=== PATIENT | male | born 1990 | race Caucasian/White ===

== ENCOUNTER 2018-07-14 21:37 | Emergency (ER) | payer SELFPAY ==
[2018-07-14 22:36] VITALS: BP 126/73
[2018-07-14] MEDS ORDERED: LIDOCAINE 2% VISCOUS SOLN 20 ML UDCUP PO ONE (23:26)
[2018-07-14] MEDS ORDERED: METOCLOPRAMIDE HCL ORAL SOLN 10 MG/10 ML UDCUP PO ONE (23:26)
[2018-07-14] MEDS ORDERED: MAG HYDROX/AL HYDROX/SIMETH SUSP 30 ML UDCUP PO ONE (23:26)
--- NOTE | 2018-07-15 00:41 | ER Document Report ---
HPI - HPI Pain Level: 3 Notes: Patient is a 28-year-old male with history of acid reflux disease. Patient reports having worsening symptoms today. Patient took double dose of his Zantac with some relief but patient still complains of epigastric pain. Patient denies any nausea, vomiting or fever. Patient denies any history of cardiac disease. - CARDIOVASCULAR Cardiovascular: REPORTS: Chest pain - GASTROINTESTINAL Gastrointestinal: REPORTS: Abdominal Pain Past Medical History - General Information source: Patient - Social History Smoking Status: Current Every Day Smoker Frequency of alcohol use: Occasional Drug Abuse: None Family History: Reviewed & Not Pertinent Patient has suicidal ideation: No Patient has homicidal ideation: No Renal/ Medical History: Denies: Hx Peritoneal Dialysis GI Medical History: Reports: Hx Gastroesophageal Reflux Disease Psychiatric Medical History: Reports: Hx Depression Vertical Provider Document - CONSTITUTIONAL Notes: PHYSICAL EXAMINATION: GENERAL: Well-appearing, well-nourished and in no acute distress. HEAD: Atraumatic, normocephalic. EYES: Pupils equal round and reactive to light, extraocular movements intact, sclera anicteric, conjunctiva are normal. ENT: Nares patent, oropharynx clear without exudates. Moist mucous membranes. NECK: Normal range of motion, supple without lymphadenopathy LUNGS: Breath sounds clear to auscultation bilaterally and equal. No wheezes rales or rhonchi. HEART: Regular rate and rhythm without murmurs ABDOMEN: Soft, nontender, nondistended abdomen. No guarding, no rebound. No masses appreciated. Musculoskeletal: Normal range of motion, no pitting or edema. No cyanosis. NEUROLOGICAL: Cranial nerves grossly intact. Normal speech, normal gait. Normal sensory, motor exams PSYCH: Normal mood, normal affect. SKIN: Warm, Dry, normal turgor, no rashes or lesions noted. - INFECTION CONTROL TRAVEL OUTSIDE OF THE [place] IN LAST 30 DAYS: No Course - Re-evaluation Re-evalutation: EKG reveals a sinus rhythm, no ST segment elevations or depressions, normal axis. Patient was given a GI cocktail and reports that his symptoms have completely resolved. Patient will be discharged home in stable condition. - Vital Signs Vital signs: Temp Pulse Resp BP Pulse Ox 97.8 F 68 126/73 H 98 07/14/18 22:33 07/14/18 22:33 07/14/18 22:33 09/20/18 22:33 Discharge - Discharge Clinical Impression: GERD (gastroesophageal reflux disease) Qualifiers: Esophagitis presence: without esophagitis Qualified Code(s): K21.9 - Gastro- esophageal reflux disease without esophagitis Condition: Stable Disposition: HOME, SELF-CARE Additional Instructions: Reflux Disease (GERD) Gastro-Esophageal Reflux Disease (GERD) is caused by stomach acid refluxing back up into the esophagus. The valve at the end of the esophagus may be weak. This is common in persons with a hiatal hernia. GERD symptoms can include indigestion, chest pain, heartburn, or food "sticking." Certain foods, alcohol, and aspirin can make GERD worse. Treatment depends on the severity. Usually, antacids or acid-suppressing medicines are used. When the esophagus is acutely inflamed, the physician will often prescribe membrane-protective drugs such as Carafate. Some patients benefit from medication such as Reglan that tightens the valve at the top of the stomach. Avoid those foods that bring on your symptoms. For many people, these foods are coffee, chocolate, onions, garlic, and carbonated drinks. Don't use alcohol, aspirin, caffeine, or tobacco. Don't eat late at night -- within 4 hours of bedtime. Don't over-eat. If necessary, elevate the head of your bed about 4 inches so that stomach acid will not roll up into your esophagus. Call the doctor if you develop severe chest pain, inability to swallow fluids, fever, or worsening symptoms. Your EKG was normal today and your pain was resolved with the GI cocktail. You may want to try taking omeprazole or Prilosec instead of Zantac. Please follow- up with your primary care provider for a follow-up if your symptoms persist. If you develop worsening chest pain accompanied by shortness of breath, radiation of the pain, nausea, vomiting or any other symptom that is concerning to please return to the emergency department immediately.
--- NOTE | 2018-07-15 10:24 | EKG REPORT ---
SEVERITY:- NORMAL ECG - SINUS RHYTHM : Confirmed by: Diana Schwarz MD 15-Jul-2018 10:23:45
== END 2018-07-15 01:15 | disposition home or self-care (01) ==
LOC: ER 21:37
DX: K21.9 Gastro-esophageal reflux disease without esophagitis (principal); R07.9 Chest pain, unspecified; F17.200 Nicotine dependence, unspecified, uncomplicated
CPT/HCPCS: 93005; 99284; 93010; J3490

== ENCOUNTER 2018-12-05 21:29 | Emergency (ER) | payer BC ==
--- NOTE | 2018-12-05 23:20 | EKG REPORT ---
SEVERITY:- NORMAL ECG - SINUS RHYTHM : Confirmed by: Diana Schwarz MD 05-Dec-2018 23:20:04
[2018-12-05 23:39] LABS: ABSOLUTE BASOPHILS # (AUTO) 0.1 10^3/uL (0.0-0.2); ABSOLUTE EOSINOPHILS # (AUTO) 0.3 10^3/uL (0.0-0.6); ABSOLUTE LYMPHOCYTES (AUTO) 2.4 10^3/uL (0.5-4.7); ABSOLUTE MONOCYTES (AUTO) 0.7 10^3/uL (0.1-1.4); ABSOLUTE NEUT (AUTO) 6.7 10^3/uL (1.7-8.2); BASOPHILS % (AUTO) 0.8 % (0-2); EOSINOPHILS % (AUTO) 3.1 % (0-6); HEMATOCRIT 43.8 % (37.9-51.0); HEMOGLOBIN 15.2 g/dL (13.5-17.0); LYMPHOCYTES % (AUTO) 23.1 % (13-45); MEAN CORPUSCULAR HEMOGLOBIN 30.1 pg (27.0-33.4); MEAN CORPUSCULAR HGB CONC 34.7 g/dL (32.0-36.0); MEAN CORPUSCULAR VOLUME 87 fl (80-97); MONOCYTES % (AUTO) 7.3 % (3-13); PLATELET COUNT 161 10^3/uL (150-450); RED BLOOD COUNT 5.05 10^6/uL (4.35-5.55); RED CELL DISTRIBUTION WIDTH 13.4 % (11.5-14.0); SEGMENTED NEUTROPHILS % (AUTO) 65.7 % (42-78); TOTAL CELLS COUNTED % (AUTO) 100 %; WHITE BLOOD COUNT 10.2 10^3/uL (4.0-10.5)
[2018-12-05 23:42] LABS: APPEARANCE,URINE CLEAR; BILIRUBIN,URINE NEGATIVE (NEGATIVE); COLOR,URINE YELLOW; GLUCOSE, URINE NEGATIVE (NEGATIVE); KETONES,URINE NEGATIVE (NEGATIVE); LEUKOCYTE ESTERASE,URINE NEGATIVE (NEGATIVE); NITRITE,URINE NEGATIVE (NEGATIVE); PROTEIN,URINE NEGATIVE (NEGATIVE)
--- NOTE | 2018-12-05 23:51 | ER Document Report ---
ED General - General Chief Complaint: Abdominal Pain Stated Complaint: CHEST PAIN Time Seen by Provider: 12/05/18 23:50 Notes: Patient is a 28-year-old male who presents with complaint of burning type sensation going into his chest. Says started today. No start after eating. He does have history of acid reflux and says he is felt similar pain but this is much more intense than what is had in the past. He does take omeprazole every day. No fevers. No vomiting. No diarrhea. No social abdominal pain. He says he feels a burning type pain in his esophagus when he swallows. Only other chronic medical problems he has is anxiety for which she takes medication for. He does not feel anxious at this time. TRAVEL OUTSIDE OF THE [place] IN LAST 30 DAYS: No - Related Data Allergies/Adverse Reactions: amoxicillin [From Augmentin] Allergy (Verified 12/05/18 21:38) clavulanic acid [From Augmentin] Allergy (Verified 12/05/18 21:38) Past Medical History - Social History Smoking Status: Current Every Day Smoker Chew tobacco use (# tins/day): No Frequency of alcohol use: None Drug Abuse: None Family History: Reviewed & Not Pertinent Patient has suicidal ideation: No Patient has homicidal ideation: No Renal/ Medical History: Denies: Hx Peritoneal Dialysis GI Medical History: Reports: Hx Gastroesophageal Reflux Disease Psychiatric Medical History: Reports: Hx Depression Review of Systems - Review of Systems Notes: My Normal Review Basic REVIEW OF SYSTEMS: CONSTITUTIONAL : Denies fever, chills, or sweats. Denies recent illness. EENT: Denies eye, ear, throat, or mouth pain or symptoms. Denies nasal or sinus congestion. CARDIOVASCULAR: Any pain going into chest. RESPIRATORY: Denies cough, cold, or chest congestion. Denies shortness of breath, difficulty breathing, or wheezing. GASTROINTESTINAL: Denies abdominal pain. Denies nausea, vomiting, or diarrhea. MUSCULOSKELETAL: Denies neck or back pain or joint pain or swelling. SKIN: Denies rash or skin lesions. NEUROLOGICAL: Denies altered mental status or loss of consciousness. ALL OTHER SYSTEMS REVIEWED AND NEGATIVE. Physical Exam - Vital signs Vitals: Temp Pulse Resp BP Pulse Ox 97.5 F 65 17 139/89 H 98 12/05/18 22:14 12/05/18 22:14 12/05/18 22:14 12/05/18 22:14 12/05/18 22:14 - Notes Notes: General Appearance: Well nourished, alert, cooperative, no acute distress, no obvious discomfort. Well-appearing. Vitals: reviewed, See vital signs table. Head: no swelling or tenderness to the head Eyes: PERRL, EOMI, Conjuctiva clear Mouth: No decreasd moisture Lungs: No wheezing, No rales, No rhonci, No accessory muscle use, good air exchange bilaterally. Heart: Normal rate, Regular rythm, No murmur, no rub Abdomen: Normal BS, soft, No rigidity, No abdominal tenderness, No guarding, no rebound, no abdominal masses, no organomegaly Neuro: speech clear, oriented x 3, normal affect, responds appropriately to questions. Course - Re-evaluation Re-evalutation: 12/06/18 00:31 GI cocktail did not completely resolve his symptoms but he says it did help significantly. I suspect that most likely symptoms are related to esophagitis based on the fact he has a history of acid reflux and he has worsening pain when he swallows. He also describes as a burning type pain going to his chest. He has no coronary risk factors. EKG is normal appearing. I will place him on Carafate and informed him to continue take his omeprazole. I encouraged him return to ER if he has fevers, vomiting, worsening pain, or feels unwell. I t alked about diet changes and to avoid fried foods, spicy foods, or acidic foods. Patient agrees with plan will be discharged home. Dictation of this chart was performed using voice recognition software; therefore, there may be some unintended grammatical errors. - Vital Signs Vital signs: Temp Pulse Resp BP Pulse Ox 97.5 F 65 17 139/89 H 98 12/05/18 22:14 12/05/18 22:14 12/05/18 22:14 12/05/18 22:14 12/05/18 22:14 - Laboratory Result Diagrams: 12/05/18 23:25 12/05/18 23:25 Laboratory results interpreted by me: 12/05/18 12/05/18 23:25 23:25 Glucose 122 H Urine Urobilinogen 2.0 H - EKG Interpretation by Me Additional EKG results interpreted by me: 12/05/18 23:50 EKG is reviewed and interpreted by me. EKG shows sinus rhythm with a rate of [address] segment elevation or depression. No ischemic T wave inversions. SD interval, QRS duration, QT intervals are within normal range. No old EKG available for comparison. Discharge - Discharge Clinical Impression: Chest pain Qualifiers: Chest pain type: unspecified Qualified Code(s): R07.9 - Chest pain, unspecified Condition: Good Disposition: HOME, SELF-CARE Additional Instructions: I suspect the pain in your chest is related to esophagitis. This is inflammation and irritation to the esophagus due to acid reflux. Continue take your omeprazole. I have written a prescription for Carafate. This is a medication that coats the esophagus and stomach and helps resolve your symptoms. Please return to the ER immediately if you have fevers, worsening pain, recurrent vomiting, black or tarry stools, or if you feel that you are worsening in any way. Please avoid spicy foods, acidic foods, fried foods, or fatty foods. Prescriptions: Sucralfate [Carafate Susp 1 Gm/10 Ml Udcup] 1 gm PO ACHS 10 Days udc
[2018-12-05] MEDS ORDERED: MAG HYDROX/AL HYDROX/SIMETH SUSP 30 ML UDCUP PO ONE (23:57)
[2018-12-05] MEDS ORDERED: LIDOCAINE 2% VISCOUS SOLN 20 ML UDCUP PO ONE (23:57)
[2018-12-05] MEDS ORDERED: METOCLOPRAMIDE HCL ORAL SOLN 10 MG/10 ML UDCUP PO ONE (23:57)
[2018-12-06] LABS: ALANINE AMINOTRANSFERASE 33 U/L (21-72); ALBUMIN 4.6 g/dL (3.5-5.0); ALKALINE PHOSPHATASE 57 U/L (38-126); ANION GAP 9 (5-19); ASPARTATE AMINO TRANSFERASE 26 U/L (17-59); BILIRUBIN,DIRECT 0.2 mg/dL (0.0-0.4); BILIRUBIN,TOTAL 0.4 mg/dL (0.2-1.3); BLOOD UREA NITROGEN 16 mg/dL (7-20); CALCIUM 9.8 mg/dL (8.4-10.2); CARBON DIOXIDE 27 mmol/L (22-30); CHLORIDE 105 mmol/L (98-107); GLUCOSE 122 mg/dL (75-110); LIPASE 105.6 U/L (23-300); POTASSIUM 3.9 mmol/L (3.6-5.0); TOTAL PROTEIN 6.7 g/dL (6.3-8.2)
[2018-12-06 00:36] VITALS: BP 123/87
== END 2018-12-06 00:43 | disposition home or self-care (01) ==
LOC: ER 21:29
DX: R07.9 Chest pain, unspecified (principal); R10.9 Unspecified abdominal pain; R10.13 Epigastric pain; R13.10 Dysphagia, unspecified; Z79.899 Other long term (current) drug therapy; F17.200 Nicotine dependence, unspecified, uncomplicated
CPT/HCPCS: 93005; 99285; 36415; 83690; 85025; 80053; 81001; 93010; J3490

== ENCOUNTER 2019-01-20 16:51 | Emergency (ER) | payer BC ==
[2019-01-20 17:04] VITALS: BP 130/76
[2019-01-20] MEDS ORDERED: ASPIRIN 325 MG TABLET PO ONE (19:56)
--- NOTE | 2019-01-20 19:58 | ER Document Report ---
ED Medical Screen (RME) - General Chief Complaint: Chest Pain Stated Complaint: CHEST PAIN Time Seen by Provider: 01/20/19 19:55 Mode of Arrival: Ambulatory Information source: Patient TRAVEL OUTSIDE OF THE [place] IN LAST 30 DAYS: No - HPI Patient complains to provider of: cp Onset: Other - pt. with 3 day h/o intermittent L sided CP with occasional radiation down L arm. Did not take ASA today - Related Data Allergies/Adverse Reactions: amoxicillin [From Augmentin] Allergy (Verified 12/05/18 21:38) clavulanic acid [From Augmentin] Allergy (Verified 12/05/18 21:38) Past Medical History Renal/ Medical History: Denies: Hx Peritoneal Dialysis GI Medical History: Reports: Hx Gastroesophageal Reflux Disease Psychiatric Medical History: Reports: Hx Depression Physical Exam - Vital signs Vitals: Temp Pulse Resp BP Pulse Ox 98.4 F 85 16 130/76 H 97 01/20/19 17:03 01/20/19 17:03 01/20/19 17:03 01/20/19 17:03 01/20/19 17:03 Course - Vital Signs Vital signs: Temp Pulse Resp BP Pulse Ox 98.4 F 85 16 130/76 H 97 01/20/19 17:03 01/20/19 17:03 01/20/19 17:03 01/20/19 17:03 01/20/19 17:03
[2019-01-20 20:43] LABS: ABSOLUTE BASOPHILS # (AUTO) 0.1 10^3/uL (0.0-0.2); ABSOLUTE EOSINOPHILS # (AUTO) 0.3 10^3/uL (0.0-0.6); ABSOLUTE LYMPHOCYTES (AUTO) 3.2 10^3/uL (0.5-4.7); ABSOLUTE MONOCYTES (AUTO) 0.6 10^3/uL (0.1-1.4); BASOPHILS % (AUTO) 0.7 % (0-2); HEMATOCRIT 44.4 % (37.9-51.0); HEMOGLOBIN 15.6 g/dL (13.5-17.0); LYMPHOCYTES % (AUTO) 38.8 % (13-45); MEAN CORPUSCULAR HEMOGLOBIN 30.3 pg (27.0-33.4); MEAN CORPUSCULAR HGB CONC 35.2 g/dL (32.0-36.0); MEAN CORPUSCULAR VOLUME 86 fl (80-97); MONOCYTES % (AUTO) 7.5 % (3-13); PLATELET COUNT 168 10^3/uL (150-450); RED BLOOD COUNT 5.15 10^6/uL (4.35-5.55); RED CELL DISTRIBUTION WIDTH 13.8 % (11.5-14.0); TOTAL CELLS COUNTED % (AUTO) 100 %; WHITE BLOOD COUNT 8.2 10^3/uL (4.0-10.5)
--- NOTE | 2019-01-20 20:56 | EKG REPORT ---
SEVERITY:- NORMAL ECG - SINUS RHYTHM : Confirmed by: Diana Schwarz MD 20-Jan-2019 20:55:34
[2019-01-20 21:01] LABS: ALANINE AMINOTRANSFERASE 25 U/L (21-72); ALBUMIN 4.6 g/dL (3.5-5.0); ALKALINE PHOSPHATASE 59 U/L (38-126); ANION GAP 8 (5-19); ASPARTATE AMINO TRANSFERASE 26 U/L (17-59); BILIRUBIN,DIRECT 0.2 mg/dL (0.0-0.4); BILIRUBIN,TOTAL 0.6 mg/dL (0.2-1.3); BLOOD UREA NITROGEN 14 mg/dL (7-20); CALCIUM 10.1 mg/dL (8.4-10.2); CARBON DIOXIDE 28 mmol/L (22-30); CHLORIDE 104 mmol/L (98-107); CREATINE KINASE 193 U/L (55-170); GLUCOSE 93 mg/dL (75-110); POTASSIUM 4.2 mmol/L (3.6-5.0); SODIUM 139.6 mmol/L (137-145); TOTAL PROTEIN 7.3 g/dL (6.3-8.2)
--- NOTE | 2019-01-20 21:05 | RADIOLOGY REPORT (SQ) ---
EXAM DESCRIPTION: XR CHEST 2 VIEWS COMPLETED DATE/TME: 01/20/2019 19:56 CLINICAL HISTORY: 28 years, Male, cp technologist note: Left-sided chest pain radiating to the neck for four days. COMPARISON: None. NUMBER OF VIEWS: 2 TECHNIQUE: Two-view AP and lateral of the chest was obtained. LIMITATIONS: None. FINDINGS: Unremarkable cardiac and mediastinal silhouette. Heart size is normal. Lungs are clear without focal opacity, pneumothorax or pleural effusions. The visualized bones are within normal limits. IMPRESSION: No acute cardiopulmonary abnormalities. copyright 2010 [employer]- All Rights Reserved
[2019-01-20 21:13] LABS: CREATINE KINASE MB 0.35 ng/mL (<4.55)
[2019-01-20 21:14] LABS: TROPONIN I < 0.012 ng/mL
--- NOTE | 2019-01-20 22:12 | ER Document Report ---
ED General - General Chief Complaint: Chest Pain Stated Complaint: CHEST PAIN Time Seen by Provider: 01/20/19 19:55 Primary Care Provider: GINA MAN MD [ACTIVE STAFF] - 01/23/19 Mode of Arrival: Ambulatory Notes: Patient is a 28-year-old male presents with complaint of intermittent chest pain for several days. He says pain is usually left-sided and goes into his left shoulder. Assessment this happens he does feel anxious and nervous but thinks that he becomes anxious nervous more because of the pain. Says it happens intermittently. He said it can happen when he is lying still or when he is standing or when he is moving around. He says it does not seem to be exacerbated by any one thing in particular. Is not affected by eating or drinking. He denies any fevers. No vomiting. No diarrhea. He does have family history of coronary disease but he says no family history of heart disease at a young age. He denies any leg pain or leg swelling. Pain is not worse with deep breathing. Pain is not worse with movement. No leg pain or leg swelling. He does smoke. No drug use. No alcohol use. The only past medical history has is anxiety. No other complaints at this time. TRAVEL OUTSIDE OF THE [place] IN LAST 30 DAYS: No - Related Data Allergies/Adverse Reactions: amoxicillin [From Augmentin] Allergy (Verified 12/05/18 21:38) clavulanic acid [From Augmentin] Allergy (Verified 12/05/18 21:38) Past Medical History - General Information source: Patient - Social History Smoking Status: Current Every Day Smoker Chew tobacco use (# tins/day): No Frequency of alcohol use: None Drug Abuse: None Family History: Reviewed & Not Pertinent Patient has suicidal ideation: No Patient has homicidal ideation: No Renal/ Medical History: Denies: Hx Peritoneal Dialysis GI Medical History: Reports: Hx Gastroesophageal Reflux Disease Psychiatric Medical History: Reports: Hx Depression Review of Systems - Review of Systems Notes: My Normal Review Basic REVIEW OF SYSTEMS: CONSTITUTIONAL : Denies fever, chills, or sweats. Denies recent illness. EENT: Denies eye, ear, throat, or mouth pain or symptoms. Denies nasal or sinus congestion. CARDIOVASCULAR: Intermittent chest pain. RESPIRATORY: Denies cough, cold, or chest congestion. Denies shortness of breath, difficulty breathing, or wheezing. GASTROINTESTINAL: Denies abdominal pain. Denies nausea, vomiting, or diarrhea. Denies constipation. Last BM: MUSCULOSKELETAL: Denies neck or back pain or joint pain or swelling. SKIN: Denies rash or skin lesions. NEUROLOGICAL: Denies altered mental status or loss of consciousness. Denies headache. Denies weakness or paralysis or loss of use of either side. Denies problems with gait or speech. Denies sensory or motor loss. ALL OTHER SYSTEMS REVIEWED AND NEGATIVE. Physical Exam - Vital signs Vitals: Temp Pulse Resp BP Pulse Ox 98.4 F 85 16 130/76 H 97 01/20/19 17:03 01/20/19 17:03 01/20/19 17:03 01/20/19 17:03 01/20/19 17:03 - Notes Notes: General Appearance: Well nourished, alert, cooperative, no acute distress, no obvious discomfort. Well-appearing. Vitals: reviewed, See vital signs table. Head: no swelling or tenderness to the head Eyes: PERRL, EOMI, Conjuctiva clear Mouth: No decreasd moisture Lungs: No wheezing, No rales, No rhonci, No accessory muscle use, good air exchange bilaterally. Chest wall: No reproducible chest wall tenderness to palpation. Heart: Normal rate, Regular rythm, No murmur, no rub Abdomen: Normal BS, soft, No rigidity, No abdominal tenderness, No guarding, no rebound, no abdominal masses Extremities: strength 5/5 in all extremities, good pulses in all extremities, no swelling or tenderness in the extremities Skin: Circular lesions on back from cupping which patient says he does to help alleviate stress. Neuro: speech clear, oriented x 3, normal affect, responds appropriately to questions. Course - Re-evaluation Re-evalutation: 01/20/19 23:05 At this time I do not see a dangerous cause of the patient's chest pain. He is very low risk for this being related to coronary disease as he does not have a family history of coronary disease at a young age and his only risk factor is smoking. Troponin and EKG are negative. I do not suspect PE as he is PERC rule negative. I do not suspect pericarditis or myocarditis as the pain is not positional and the patient has not had fever or any signs of infection. At this time I feel he safe to be discharged home. I will refer him to follow-up with cardiology for reevaluation. I encouraged him return to ER immediately if he has chest pain that is worsening or continuous, difficulty breathing, fevers, or if he feels that he is worsening in any way. Patient agrees with plan will be discharged home. Dictation of this chart was performed using voice recognition software; therefor e, there may be some unintended grammatical errors. - Vital Signs Vital signs: Temp Pulse Resp BP Pulse Ox 98.4 F 85 21 H 130/76 H 99 01/20/19 17:03 01/20/19 17:03 01/20/19 22:00 01/20/19 17:03 01/20/19 22:00 - Laboratory Result Diagrams: 01/20/19 20:28 01/20/19 20:28 Laboratory results interpreted by me: 01/20/19 20:28 Creatine Kinase 193 H - EKG Interpretation by Me Additional EKG results interpreted by me: 01/20/19 22:11 EKG is reviewed and interpreted by me. EKG shows sinus rhythm with a rate of [address] segment elevation or depression. No ischemic T wave inversions. VA interval, QRS duration, QT intervals are within normal range. EKG for comparison is from December 05, 2018. Discharge - Discharge Clinical Impression: Chest pain Condition: Good Disposition: HOME, SELF-CARE Additional Instructions: Your work up looking at your heart today was normal and did not show any concerning findings. Despite your normal workup we still will refer you to a measuring clerk fro reevaluation. The measuring clerk is Dr. Mejia. Please call his office Wednesday morning to make a close follow up appointment. please return to the ER immediately if you develop worsening chest pain, difficulty breathing, fevers, or feel unwell. Stop smoking. Referrals: GINA MAN MD [ACTIVE STAFF] - 01/23/19
== END 2019-01-20 22:58 | disposition home or self-care (01) ==
LOC: ER 16:51
DX: R07.9 Chest pain, unspecified (principal); F17.200 Nicotine dependence, unspecified, uncomplicated; Z88.0 Allergy status to penicillin
CPT/HCPCS: 36415; 71046; 80053; 82550; 82553; 84484; 85025; 93005; 93010; 99285